=== PATIENT | female | born 1995 | race American Indian/Alaskan Native ===

== ENCOUNTER 2017-07-30 21:32 | Emergency (ER) | payer SELFPAY ==
[2017-07-30 21:49] VITALS: RESP 18
[2017-07-30] MEDS ORDERED: Bacitracin 500 Units/gm Oint Foilpak UD TOP STA (22:31)
[2017-07-30] MEDS ORDERED: Tetanus/Diphtheria Toxoids 0.5 ml Syringe IM ONE ×2 (22:31→22:40)
[2017-07-30] MEDS ORDERED: Oxycodone/Acetaminophen 5/325 mg Tab PO STA (22:31)
[2017-07-30] MEDS ORDERED: Oxycodone/Acetaminophen 5/325 mg Tab ONE (22:39)
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
[2017-07-30] MEDS ORDERED: Bacitracin 500 Units/gm Oint Foilpak UD ONE (23:47)
[2017-07-30 23:49] VITALS: BP 122/86; PULSE 73; TEMP 97.8
[2017-07-31 02:03] VITALS: O2SAT 99
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
== END 2017-07-30 23:59 | disposition home or self-care (01) ==
LOC: C.ER 21:32
DX: S02.2XXA Fracture of nasal bones, initial encounter for closed fracture (principal); S00.83XA Contusion of other part of head, initial encounter; Y08.89XA Assault by other specified means, initial encounter; Y92.89 Other specified places as the place of occurrence of the external cause

== ENCOUNTER 2018-09-11 22:49 | Emergency (ER) | payer SELFPAY ==
[2018-09-11 22:55] VITALS: BP 136/90; PULSE 85; TEMP 98.5; O2SAT 97
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
[2018-09-11 23:52] VITALS: RESP 20
== END 2018-09-11 23:51 | disposition home or self-care (01) ==
LOC: C.ER 22:49
DX: S01.21XA Laceration without foreign body of nose, initial encounter (principal); W18.00XA Striking against unspecified object with subsequent fall, initial encounter